=== PATIENT | male | born 1955 | race Caucasian/White ===

== ENCOUNTER 2023-04-24 14:29 | Outpatient (AMB) | payer MEDICARE, MEDICAID, SELFPAY ==
--- NOTE | 2023-04-24 14:35 | A.OFFVIS_ITS ---
Intake Intake Visit Reasons: urinary frequency Intake Note: New Patient presents for initial visit for urinary frequency Urology Medications: terazosin Blood Thinner: aspirin PVR: 45ml's Delimber Operator Required: No Accompanied by: Self / Same As Patient Allergies benzonatate [From Alisha Pepe] Allergy (Verified 04/24/23 20:24) Rash augmenton Allergy (Unknown, Uncoded 04/24/23 20:24) Rash Medication List - Last Reconciled 04/24/23 by RADHA Stein acetaminophen 1,000 mg PO Q8H PRN aspirin (Gertrude Low Dose Aspirin) 81 mg PO DAILY atorvastatin 40 mg PO DAILY metoprolol succinate ER 100 mg PO DAILY terazosin 2 mg PO BEDTIME HPI HPI Comments History of Present Illness Details Casey is a 67-year-old male patient of [facility]. He has a past medical history of AFib, diastolic dysfunction, ED, and BPH. He presents to the office today as a new patient for nocturia. He reports previously following up with Dr. Peres in the past for his history of erectile dysfunction as well as ongoing lower urinary tract symptoms he has experienced over time. He reports noting ongoing worsening nocturia. He reports bothersome urinary issues are at night however feels throughout the day he does relatively well with emptying his bladder. In review of patient's chart it appears most recent PSA 03/06--5.2. He denies any signs and symptoms of sleep apnea. When asked he denies urgency, urinary frequency, incontinence, hematuria, dysuria, foul smelling urine, changes to urinary stream, flank pain, fever, and or chills. He reports to have recently started 2 mg of terazosin at bedtime by his PCP however it has only been 1 week in doing so. In office urinalysis results reviewed with the patient today. PVR 45ml's. Discussed at length potential causes for lower urinary tract symptoms he is experiencing. Discussed lifestyle modifications to assist with nocturia. Discussed further workup with redraw of PSA with no sex the night before, no caffeine morning of, and no heavy lifting 1-2 days prior to lab draw. Discussed obtaining retroperitoneal ultrasound for further assessment evaluation. JACKSON offered however deferred. He otherwise offers no issues or concerns at this time. FORMERLY [facility], [facility]–1983 Medical History (Updated 04/24/23 @ 15:12 by RADHA Stein) Encounter for screening Atrial fibrillation Diastolic dysfunction Erectile dysfunction BPH (benign prostatic hyperplasia) Surgical History History of mitral valve repair Review of Systems Const Reports as per HPI Eyes Reports no additional complaints ENT Reports no additional complaints Card Reports as per HPI Resp Reports no additional complaints GI Reports no additional complaints Reports as per HPI Musc Reports no additional complaints Neuro Reports no additional complaints Psych Reports no additional complaints Endo Reports no additional complaints Jimmie/Lymph Reports no additional complaints Aller/Immun Reports no additional complaints Physical Exam Const General: cooperative, healthy appearing, comfortable, no acute distress, well developed, alert and awake Orientation/consciousness: patient oriented x3 HEENT Head: Yes normal to inspection, Yes normocephalic and Yes atraumatic Ears: hearing grossly normal bilaterally Eyes General: appearance normal, both eyes and all related structures Neck Neck: Yes normal visual inspection and Yes trachea midline Chest Chest palpation & inspection: normal inspection of the chest Resp Effort & Inspection: normal respiratory effort and able to speak in complete sentences Cardio Rate: regular rate GI Inspection: Yes normal to inspection General: Yes no CVA tenderness Back/Spine/Pelvis Back: no CVA tenderness Skin General skin exam: no rashes or lesions noted Neuro General: patient oriented x3 Extrem General: Yes normal to inspection Psych Appearance: grossly normal and well kempt Mental Status: mental status grossly normal Speech and movement: Normal speech and movement present and Clear speech present Affect: normal affect Attitude: cooperative Thought process: Normal thought process present Thought content: Normal thought content present Insight: Fair insight present (Psych) Judgement: Fair judgement present (Psych) Office Procedures Post Void Residual Post Residual Void Post Void Residual (PVR): 45 [id number] Void Residual by ultrasound Results AMB Urinalysis, Automated UA Leukoctes 0 Ember/uL Last Edit by Cytherisyessica Ortiz on 04/24/23 14:55 UA Nitrite Negative Last Edit by Mark Ortiz on 04/24/23 14:55 UA Urobilinogen 0.2 mg/dL Last Edit by Mark Ortiz on 04/24/23 14:55 UA Protein 0 mg/dL Last Edit by Mark Ortiz on 04/24/23 14:55 UA pH 7.0 Last Edit by Mark Ortiz on 04/24/23 14:55 UA Blood 0 Vinnie/uL Last Edit by Mark Parisliang on 04/24/23 14:55 UA Specific [place] 1.005 Last Edit by Mark Ortiz on 04/24/23 14:55 UA Ketone Negative Last Edit by Mark Ortiz on 04/24/23 14:55 UA Bilirubin 0 mg/dL Last Edit by Mark Ortiz on 04/24/23 14:55 UA Glucose 0 mg/dL Last Edit by Mark Ortiz on 04/24/23 14:55 Results Reviewed Results Reviewed: Laboratory Last Values Urine pH (Auto) 7.0 04/24/23 14:51 Specific [place] (Auto) 1.005 04/24/23 14:51 Urine Protein (Auto) 0 mg/dL 04/24/23 14:51 Glucose (UA)(Auto) 0 mg/dL 04/24/23 14:51 Urine Ketones (Auto) Negative 04/24/23 14:51 Urine Blood (Auto) 0 Vinnie/uL 04/24/23 14:51 Urine Nitrite (Auto) Negative 04/24/23 14:51 Urine Bilirubin (Auto) 0 mg/dL 04/24/23 14:51 Urine Urobilinogen (Auto) 0.2 mg/dL 04/24/23 14:51 Leukocyte Esterase (Auto) 0 Ember/uL 04/24/23 14:51 Assessment & Plan Assessment & Plan (1) Elevated PSA: Code(s): R97.20 - Elevated prostate specific antigen [PSA] (2) Nocturia: Code(s): R35.1 - Nocturia Plan In office urinalysis results reviewed with the patient today; as noted above. PVR 45 mL. Will obtain PSA as discussed. Continue to mg of terazosin at bedtime as prescribed by PCP Will obtain retroperitoneal ultrasound for further assessment evaluation. Discussed possible near future in office cystoscopy for further assessment evaluation. Discussed at length lifestyle modifications to assist with nocturia. Discussed at length potential causes for lower urinary tract symptoms patient has been experiencing. Follow-up in 6 weeks with imaging and lab to be completed prior; or sooner with any issues, concerns, and or questions. Orders: Orders US retroperitoneal comp Today R35.1 - Nocturia AMB Urinalysis Automated Today Z13.9 - Encounter for screening, unspecified AMB Post Void Residual by ultrasound Today Z13.9 - Encounter for screening, unspecified PSA,Total (Free>4and<10) Today R97.20 - Elevated prostate specific antigen [PSA] Patient Instructions: The patient had an opportunity to ask questions regarding the treatment plan. All questions were answered. Physical exam, labs, and imaging were discussed and reviewed in detail. As well as risks, benefits, and discussion of treatment choices. No major barriers to understanding were identified. The patient ex pressed understanding and agreement with the above treatment plan. The patient was made aware they should contact our office by phone for worsening of their current condition, the appearance of new symptoms, or with any questions or concerns. Compliance is encouraged with any medications and follow up testing that is ordered. It is a privilege to be allowed the opportunity to participate in? your urological care.? Again, if you have any questions or concerns If you have any questions or concerns please do not hesitate to contact me. The office is [phone]. This note is constructed using voice recognition software. While every effort has been made to ensure accuracy agricultural mechanic errors may have been included. Yours sincerely, RADHA Stein Coding Level of Care Code New Pt Level 3 (79831) Diagnoses Elevated PSA R97.20 Nocturia R35.1 CPT Codes Post Residual Void - PVR CPT Code: 56714-Riwf Void Residual by ultrasound ([id number])
== END 2023-04-24 15:23 | disposition home or self-care (01) ==
PROVIDERS: PCP Nurse Practitioner; Visit Provider Nurse Practitioner Family
DX: R97.20 Elevated prostate specific antigen [PSA] (principal); R35.1 Nocturia; Z13.9 Encounter for screening, unspecified
CPT/HCPCS: 99203

== ENCOUNTER → 2023-04-24 14:29 | Outpatient (BNVA) | payer MEDICARE, MEDICAID, SELFPAY | PROVIDERS: PCP Nurse Practitioner; Visit Provider Nurse Practitioner Family | DX: R97.20 Elevated prostate specific antigen [PSA] (principal); R35.1 Nocturia | CPT/HCPCS: 51798; 81003; 99202 ==

== ENCOUNTER 2023-05-09 14:05 | Outpatient (REF) | payer MEDICARE, MEDICAID, SELFPAY ==
--- NOTE | ~2023-05-09 | US_ITS ---
EXAMINATION: US RETROPERITONEAL COMPLETE (RENAL) CLINICAL INFORMATION: Nocturia. COMPARISON: None available. TECHNIQUE: Real-time imaging of the kidneys and bladder. FINDINGS: RIGHT KIDNEY: 10.3 x 5.0 x 6.4 cm (SAG x AP x TRV). Renal cortical thickness is normal. Limited visualization. Exophytic 0.4 cm upper pole cyst is difficult to characterize due to small size. Prominent renal pyramids. No renal calculi. LEFT KIDNEY: 11.0 x 5.3 x 5.2 cm (SAG x AP x TRV). No hydronephrosis. No renal calculi. Renal cortical thickness is normal. Limited visualization. BLADDER: Bladder wall thickening of 0.6 cm. Diffuse trabeculations of the bladder wall. Bladder is well distended. Left ureteral jet is demonstrated; right is not. Prevoid bladder volume is 271.4 mL. Postvoid bladder volume is 103.6 mL. ADDITIONAL FINDINGS: Prostate volume 33.4 mL. US/US retroperitoneal comp IMPRESSION: 1. Bladder wall thickening with trabeculations of the bladder wall. Postvoid residual of 103.6 mL. 2. Prostate volume 33.4 mL. 3. Prominent right renal pyramids. No renal calculi. 4. Limited visualization due to bowel gas and body habitus. CT scan could be considered for better visualization.
== END 2023-05-09 14:06 | disposition home or self-care (01) ==
LOC: HO.US 14:05
PROVIDERS: PCP Nurse Practitioner; Visit Provider Nurse Practitioner Family
DX: R35.1 Nocturia (principal)
CPT/HCPCS: 76770

== ENCOUNTER 2023-06-04 14:57 | Outpatient (REF) | payer MEDICARE, MEDICAID, SELFPAY ==
[2023-06-04 16:33] LABS: PSA,Total (Free>4and<10) 4.52 ng/mL (0.00-4.00)
[2023-06-06 11:09] LABS: Free Prostate Spec Ag 0.9 ng/mL; Percent Free Prostate Spec Ag 19 % (calc) (>25); Prostate Specific Ag Total 4.7 ng/mL (< OR = 4.0)
== END 2023-06-04 14:58 | disposition home or self-care (01) ==
LOC: HO.LAB 14:57
PROVIDERS: Visit Provider Nurse Practitioner Family
DX: R97.20 Elevated prostate specific antigen [PSA] (principal); Z12.5 Encounter for screening for malignant neoplasm of prostate
CPT/HCPCS: 36415; 84153; 84154

== ENCOUNTER 2023-06-10 11:02 | Outpatient (AMB) | payer MEDICARE, MEDICAID, SELFPAY ==
--- NOTE | 2023-06-10 11:20 | MHC.OFFVIS ---
Intake Intake Visit Reasons: 6w/US/PSA(set) Intake Note: Patient presents today for follow up visit for elevated psa,nocturia, lab and ultrasound results Imagin05/09/23 PSA Total: 4.5 Urology Medications: terazosin Blood Thinner: aspirin PVR:52ml Honing Machine Operator Tool Required: No Accompanied by: Self / Same As Patient Allergies benzonatate [From Tessalon Perles] Allergy (Verified 06/10/23 11:39) Rash augmenton Allergy (Unknown, Uncoded 06/10/23 11:39) Rash HPI HPI Comments History of Present Illness Details Casey is a 67-year-old male patient of [facility]. He has a past medical history of AFib, diastolic dysfunction, ED, and BPH. He presents to the office today for follow-up. Of note, patient was seen approximately 6 weeks ago as a new patient for nocturia at which time a retroperitoneal ultrasound and PSA were ordered for further assessment evaluation. These results were reviewed with the patient today. Right kidney with no calculi. Exophytic 0.4 cm upper pole cyst is difficult to characterize due to small size. Prominent renal pyramids. Left kidney with no hydronephrosis and or renal calculi. The bladder wall is thickened measuring 0.6 cm. Diffuse trabeculations of the bladder wall. The bladder is well distended. Pre void bladder volume is approximately 270 mL. Postvoid bladder volume is approximately 100 mL. Prostate volume is approximately 33 mL. PSAs are as follows: 06/07 4.5, 06/07 4.7 free PSA 19%. In discussion with the patient today he does report noting improvement in nocturia with 2 mg of terazosin that was started by his PCP. Discussed at length potential causes of elevated PSA. Discussed findings on most recent retroperitoneal ultrasound. Discussed further workup/interventions for elevated PSA with surveillance monitoring verses trial of finasteride verses prostate biopsy versus prostate MRI. Reviewed PCPT risk calculator 74% chance that prostate biopsy is negative for cancer, 19% chance of low-grade prostate cancer, and 7% chance of high-grade prostate cancer. When asked he denies urgency, urinary frequency, incontinence, hematuria, dysuria, foul smelling urine, changes to urinary stream, flank pain, fever, and or chills. In office urinalysis results reviewed with the patient today. PVR 52 mLs. PFSH Medical History Encounter for screening Atrial fibrillation Diastolic dysfunction Erectile dysfunction BPH (benign prostatic hyperplasia) Surgical History History of mitral valve repair Review of Systems Const Reports as per HPI Eyes Reports no additional complaints ENT Reports no additional complaints Card Reports as per HPI Resp Reports no additional complaints GI Reports no additional complaints Reports as per HPI Musc Reports no additional complaints Neuro Reports no additional complaints Psych Reports no additional complaints Endo Reports no additional complaints Jimmie/Lymph Reports no additional complaints Aller/Immun Reports no additional complaints Physical Exam Const General: cooperative, healthy appearing, comfortable, no acute distress, well developed, alert and awake Orientation/consciousness: patient oriented x3 HEENT Head: Yes normal to inspection, Yes normocephalic and Yes atraumatic Ears: hearing grossly normal bilaterally Eyes General: appearance normal, both eyes and all related structures Neck Neck: Yes normal visual inspection and Yes trachea midline Chest Chest palpation & inspection: normal inspection of the chest Resp Effort & Inspection: normal respiratory effort and able to speak in complete sentences Cardio Rate: regular rate GI Inspection: Yes normal to inspection General: Yes no CVA tenderness Back/Spine/Pelvis Back: no CVA tenderness Skin General skin exam: no rashes or lesions noted Neuro General: patient oriented x3 Extrem General: Yes normal to inspection Psych Appearance: grossly normal and well kempt Mental Status: mental status grossly normal Speech and movement: Normal speech and movement present and Clear speech present Affect: normal affect Attitude: cooperative Thought process: Normal thought process present Thought content: Normal thought content present Insight: Fair insight present (Psych) Judgement: Fair judgement present (Psych) Office Procedures Post Void Residual Post Residual Void Post Void Residual (PVR): 52 [id number] Void Residual by ultrasound Results AMB Urinalysis, Automated UA Leukoctes 0 Ember/uL Last Edit by Paulina Lei CMA on 06/10/23 11:40 UA Nitrite Negative Last Edit by Paulina Lei CMA on 06/10/23 11:40 UA Urobilinogen 0.2 mg/dL Last Edit by Paulina Lei CMA on 06/10/23 11:40 UA Protein 0 mg/dL Last Edit by Paulina Lei CMA on 06/10/23 11:40 UA pH 6.0 Last Edit by [facility], [facility] [address] on 06/10/23 11:40 UA Blood 0 Vinnie/uL Last Edit by [facility], [facility] [address] on 06/10/23 11:40 UA Specific [place] 1.015 Last Edit by [facility], [facility] [address] on 06/10/23 11:40 UA Ketone Negative Last Edit by [facility], [facility] on 06/10/23 11:40 UA Bilirubin 0 mg/dL Last Edit by [facility], [facility] on 06/10/23 11:40 UA Glucose 0 mg/dL Last Edit by [facility], [facility] on 06/10/23 11:40 Results Reviewed Results Reviewed: Laboratory Last Values Urine pH (Auto) 6.0 06/10/23 11:25 Specific [place] (Auto) 1.015 06/10/23 11:25 Urine Protein (Auto) 0 mg/dL 06/10/23 11:25 Glucose (UA)(Auto) 0 mg/dL 06/10/23 11:25 Urine Ketones (Auto) Negative 06/10/23 11:25 Urine Blood (Auto) 0 Vinnie/uL 06/10/23 11:25 Urine Nitrite (Auto) Negative 06/10/23 11:25 Urine Bilirubin (Auto) 0 mg/dL 06/10/23 11:25 Urine Urobilinogen (Auto) 0.2 mg/dL 06/10/23 11:25 Leukocyte Esterase (Auto) 0 Ember/uL 06/10/23 11:25 Date of Service: 05/09/23 Procedure(s): US retroperitoneal comp FINDINGS: RIGHT KIDNEY: 10.3 x 5.0 x 6.4 cm (SAG x AP x TRV). Renal cortical thickness is normal. Limited visualization. Exophytic 0.4 cm upper pole cyst is difficult to characterize due to small size. Prominent renal pyramids. No renal calculi. LEFT KIDNEY: 11.0 x 5.3 x 5.2 cm (SAG x AP x TRV). No hydronephrosis. No renal calculi. Renal cortical thickness is normal. Limited visualization. BLADDER: Bladder wall thickening of 0.6 cm. Diffuse trabeculations of the bladder wall. Bladder is well distended. Left ureteral jet is demonstrated; right is not. Prevoid bladder volume is 271.4 mL. Postvoid bladder volume is 103.6 mL. ADDITIONAL FINDINGS: Prostate volume 33.4 mL. IMPRESSION: 1. Bladder wall thickening with trabeculations of the bladder wall. Postvoid residual of 103.6 mL. 2. Prostate volume 33.4 mL. 3. Prominent right renal pyramids. No renal calculi. 4. Limited visualization due to bowel gas and body habitus. CT scan could be considered for better visualization. Assessment & Plan Assessment & Plan (1) Elevated PSA: Code(s): R97.20 - Elevated prostate specific antigen [PSA] (2) Nocturia: Code(s): R35.1 - Nocturia (3) Renal cyst: Code(s): N28.1 - Cyst of kidney, acquired (4) Bladder wall thickening: Code(s): N32.89 - Other specified disorders of bladder (5) Bladder trabeculation: Code(s): N32.89 - Other specified disorders of bladder Plan In office urinalysis results reviewed with the patient today; as noted above. PVR 52 mL. Will increase terazosin to 2 capsules per day as discussed and prescribed; new prescription provided. Start finasteride as discussed and prescribed. Recent retroperitoneal ultrasound results reviewed with the patient today; as noted above. Recent PSA results reviewed with the patient today; as noted above. Discussed at length potential causes of elevated PSA Discussed further treatment option with prostate biopsy verses trial finasteride verses prostate MRI; these interventions were discussed at length; risks and benefits of these treatment options were discussed. Will obtain PSA in 4 months. Follow-up in 4 months with lab to be completed prior; or sooner with any issues, concerns, and or questions. Orders: Orders AMB Urinalysis Automated Today R33.9 - Retention of urine, unspecified AMB Post Void Residual by ultrasound Today R33.9 - Retention of urine, unspecified PSA,Total (Free>4and<10) 4 Months R35.1 - Nocturia, R97.20 - Elevated prostate specific antigen [PSA] Medications: New finasteride 5 mg PO DAILY 90 days 90 tabs 1RF N13.8 - Other obstructive and reflux uropathy, N40.1 - Benign prostatic hyperplasia with lower urinary tract symptoms, R33.9 - Retention of urine, unspecified Changed From terazosin 2 mg PO BEDTIME To terazosin 4 mg (2 x 2 mg) PO BEDTIME 90 days 180 caps 3RF Patient Instructions: The patient had an opportunity to ask questions regarding the treatment plan. All questions were answered. Physical exam, labs, and imaging were discussed and reviewed in detail. As well as risks, benefits, and discussion of treatment choices. No major barriers to understanding were identified. The patient expressed understanding and agreement with the above treatment plan. The patient was made aware they should contact our office by phone for worsening of their current condition, the appearance of new symptoms, or with any questions or concerns. Compliance is encouraged with any medications and follow up testing that is ordered. It is a privilege to be allowed the opportunity to participate in? your urological care.? Again, if you have any questions or concerns If you have any questions or concerns please do not hesitate to contact me. The office is [phone]. This note is constructed using voice recognition software. While every effort has been made to ensure accuracy hand cell tuber errors may have been included. Yours sincerely, RADHA Stein Coding Level of Care Code Est Pt Level 4 (54685) Diagnoses Elevated PSA R97.20 Nocturia R35.1 Renal cyst N28.1 Bladder wall thickening N32.89 Bladder trabeculation N32.89 CPT Codes Post Residual Void - PVR CPT Code: 45235-Mfyb Void Residual by ultrasound ([id number])
== END 2023-06-10 11:56 | disposition home or self-care (01) ==
PROVIDERS: PCP Nurse Practitioner; Visit Provider Nurse Practitioner Family
DX: R97.20 Elevated prostate specific antigen [PSA] (principal); R35.1 Nocturia; N28.1 Cyst of kidney, acquired; N32.89 Other specified disorders of bladder
CPT/HCPCS: 99214

== ENCOUNTER → 2023-06-10 11:02 | Outpatient (BNVA) | payer MEDICARE, MEDICAID, SELFPAY | PROVIDERS: PCP Nurse Practitioner; Visit Provider Nurse Practitioner Family | DX: R97.20 Elevated prostate specific antigen [PSA] (principal); R35.1 Nocturia; N28.1 Cyst of kidney, acquired; N32.89 Other specified disorders of bladder | CPT/HCPCS: 51798; 81003; 99212 ==

== ENCOUNTER 2023-10-06 08:28 | Outpatient (REF) | payer MEDICARE, MEDICAID, SELFPAY ==
[2023-10-06 10:10] LABS: PSA,Total (Free>4and<10) 2.43 ng/mL (0.00-4.00)
== END 2023-10-06 08:29 | disposition home or self-care (01) ==
LOC: HO.LAB 08:28
PROVIDERS: PCP Nurse Practitioner; Visit Provider Nurse Practitioner Family
DX: R97.20 Elevated prostate specific antigen [PSA] (principal); R35.1 Nocturia; Z12.5 Encounter for screening for malignant neoplasm of prostate
CPT/HCPCS: 36415; 84153

== ENCOUNTER 2023-10-08 10:46 | Outpatient (AMB) | payer MEDICARE, MEDICAID, SELFPAY ==
--- NOTE | 2023-10-08 10:51 | A.OFFVIS_ITS ---
Intake Visit Reasons: 4m/PSA/PVR Intake Note: Patient presents today for follow up visit for elevated psa, nocturia,and lab PSA Total: 2.43 Urology Medications: terazosin and finasteride Blood Thinner: aspirin PVR: 40ml's Computer Support Specialist Instructor Required: No Accompanied by: Self / Same As Patient Allergies benzonatate [From Alisha Pepe] Allergy (Verified 10/08/23 11:20) Rash augmenton Allergy (Unknown, Uncoded 10/08/23 11:20) Rash Medication List - Last Reconciled 10/08/23 by KENNY SteinP- aspirin (Gertrude Low Dose Aspirin) 81 mg PO DAILY atorvastatin 40 mg PO DAILY finasteride 5 mg PO DAILY 90 days metoprolol succinate ER 100 mg PO DAILY terazosin 4 mg (2 x 2 mg) PO BEDTIME 90 days HPI Comments Details: Casey is a pleasant 68-year-old male patient of [facility]. He has a past medical history of AFib, diastolic dysfunction, ED, and BPH. He presents to the office today for follow-up of his ongoing lower urinary tract symptoms, elevated PSA, an enlarged prostate. In discussion with the patient today reports to be doing and feeling well. He reports noting improvement in episodes of nocturia he had been experiencing. He reports he had been getting up approximately 5 times per night however this has decreased to approximately 3 times per night. He reports compliance with finasteride and terazosin as prescribed. Recent PSA results reviewed with the patient today. Discussed significant decrease as noted and trended below. Previous workup has included a retroperitoneal ultrasound noting right kidney with no calculi. Exophytic 0.4 cm upper pole cyst is difficult to characterize due to small size. Prominent renal pyramids. Left kidney with no hydronephrosis and or renal calculi. The bladder wall is thickened measuring 0.6 cm. Diffuse trabeculations of the bladder wall. The bladder is well distended. Pre void bladder volume is approximately 270 mL. Postvoid bladder volume is approximately 100 mL. Prostate volume is approximately 33 mL. PSAs are as follows: PSAs: 06/07 4.5, 06/07 4.7 free PSA 19%, 10/05 2.4 When asked he denies urgency, urinary frequency, incontinence, hematuria, dysuria, foul smelling urine, changes to urinary stream, flank pain, fever, and or chills. In office urinalysis results reviewed with the patient today. PVR 40mLs. [facility] Medical History Encounter for screening Atrial fibrillation Diastolic dysfunction Erectile dysfunction BPH (benign prostatic hyperplasia) Surgical History History of mitral valve repair Review of Systems Const Reports as per HPI Eyes Reports no additional complaints ENT Reports no additional complaints Card Reports as per HPI Resp Reports no additional complaints GI Reports no additional complaints Reports as per HPI Musc Reports no additional complaints Neuro Reports no additional complaints Psych Reports no additional complaints Endo Reports no additional complaints Jimmie/Lymph Reports no additional complaints Aller/Immun Reports no additional complaints Physical Exam Const General: cooperative, healthy appearing, comfortable, no acute distress, well developed, alert and awake Orientation/consciousness: patient oriented x3 Limitations: no limitations HEENT Head: Yes normal to inspection, Yes normocephalic and Yes atraumatic Ears: hearing grossly normal bilaterally Eyes General: appearance normal, both eyes and all related structures Neck Neck: Yes normal visual inspection and Yes trachea midline Chest Chest palpation & inspection: normal inspection of the chest Resp Effort & Inspection: normal respiratory effort and able to speak in complete sentences Cardio Rate: regular rate GI Inspection: Yes normal to inspection General: Yes no CVA tenderness Back/Spine/Pelvis Back: no CVA tenderness Skin General skin exam: no rashes or lesions noted Neuro General: patient oriented x3 Extrem General: Yes normal to inspection Psych Appearance: grossly normal and well kempt Mental Status: mental status grossly normal Speech and movement: Normal speech and movement present and Clear speech present Affect: normal affect Attitude: cooperative Thought process: Normal thought process present Thought content: Normal thought content present Insight: Fair insight present (Psych) Judgement: Fair judgement present (Psych) Office Procedures Post Void Residual Post Residual Void Post Void Residual (PVR): 40 [id number] Void Residual by ultrasound Results AMB Urinalysis, Automated UA Leukoctes 0 Ember/uL Last Edit by Mark Ortiz on 10/08/23 11:09 UA Nitrite Negative Last Edit by Mark Ortiz on 10/08/23 11:09 UA Urobilinogen 0.2 mg/dL Last Edit by Mark Ortiz on 10/08/23 11:09 UA Protein 15 mg/dL Last Edit by Mark Ortiz on 10/08/23 11:09 UA pH 6.0 Last Edit by Mark Ortiz on 10/08/23 11:09 UA Blood 0 Vinnie/uL Last Edit by Mark Ortiz on 10/08/23 11:09 UA Specific [place] 1.015 Last Edit by Mark Ortiz on 10/08/23 11:09 UA Ketone Negative Last Edit by Mark Ortiz on 10/08/23 11:09 UA Bilirubin 0 mg/dL Last Edit by Mark Ortiz on 10/08/23 11:09 UA Glucose 0 mg/dL Last Edit by Mark Ortiz on 10/08/23 11:09 Results Reviewed Results Reviewed: Laboratory Last Values Urine pH (Auto) 6.0 10/08/23 10:57 Specific [place] (Auto) 1.015 10/08/23 10:57 Urine Protein (Auto) 15 mg/dL 10/08/23 10:57 Glucose (UA)(Auto) 0 mg/dL 10/08/23 10:57 Urine Ketones (Auto) Negative 10/08/23 10:57 Urine Blood (Auto) 0 Vinnie/uL 10/08/23 10:57 Urine Nitrite (Auto) Negative 10/08/23 10:57 Urine Bilirubin (Auto) 0 mg/dL 10/08/23 10:57 Urine Urobilinogen (Auto) 0.2 mg/dL 10/08/23 10:57 Leukocyte Esterase (Auto) 0 Ember/uL 10/08/23 10:57 Assessment & Plan Assessment & Plan (1) Elevated PSA: Code(s): R97.20 - Elevated prostate specific antigen [PSA] Category: Medical (2) Nocturia: Code(s): R35.1 - Nocturia Category: Medical (3) Renal cyst: Code(s): N28.1 - Cyst of kidney, acquired Category: Medical (4) Bladder wall thickening: Code(s): N32.89 - Other specified disorders of bladder Category: Medical (5) Bladder trabeculation: Code(s): N32.89 - Other specified disorders of bladder Category: Medical Plan In office urinalysis results reviewed with the patient today; as noted above. PVR 40 mL. Continue terazosin finasteride as discussed and prescribed. Recent PSA results reviewed with the patient today; as noted above. Discussed possible near future in office cystoscopy if symptoms persist and/or worsen. Discussed importance of limiting fluids 2-3 hours prior to bed to decrease episodes of nocturia. Will obtain PSA in 4-6 months. Follow-up in 4-6 months with lab to be completed prior; or sooner with any issues, concerns, and or questions. Orders: Orders AMB Post Void Residual by ultrasound Today R35.1 - Nocturia Prostate Specific Antigen 4 Months R97.20 - Elevated prostate specific antigen [PSA] AMB Urinalysis Automated Today Z13.9 - Encounter for screening, unspecified Patient Instructions: The patient had an opportunity to ask questions regarding the treatment plan. All questions were answered. Physical exam, labs, and imaging were discussed and reviewed in detail. As well as risks, benefits, and discussion of treatment choices. No major barriers to understanding were identified. The patient expressed understanding and agreement with the above treatment plan. The patient was made aware they should contact our office by phone for worsening of their current condition, the appearance of new symptoms, or with any questions or concerns. Compliance is encouraged with any medications and follow up testing that is ordered. It is a privilege to be allowed the opportunity to participate in? your urological care.? Again, if you have any questions or concerns If you have any questions or concerns please do not hesitate to contact me. The office is [phone]. This note is constructed using voice recognition software. While every effort has been made to ensure accuracy chamber worker errors may have been included. Yours sincerely, RADHA Stein Coding Level of Care Code Est Pt Level 3 (33627) Diagnoses Elevated PSA R97.20 Nocturia R35.1 Renal cyst N28.1 Bladder wall thickening N32.89 Bladder trabeculation N32.89 CPT Codes Post Residual Void - PVR CPT Code: 24816-Kccb Void Residual by ultrasound ([id number])
== END 2023-10-08 11:25 | disposition home or self-care (01) ==
PROVIDERS: PCP Nurse Practitioner; Visit Provider Nurse Practitioner Family
DX: R97.20 Elevated prostate specific antigen [PSA] (principal); R35.1 Nocturia; N28.1 Cyst of kidney, acquired; N32.89 Other specified disorders of bladder; Z13.9 Encounter for screening, unspecified
CPT/HCPCS: 99213

== ENCOUNTER → 2023-10-08 10:46 | Outpatient (BNVA) | payer MEDICARE, MEDICAID, SELFPAY | PROVIDERS: PCP Nurse Practitioner; Visit Provider Nurse Practitioner Family | DX: R35.1 Nocturia (principal); N28.1 Cyst of kidney, acquired; R97.20 Elevated prostate specific antigen [PSA]; N32.89 Other specified disorders of bladder; Z79.899 Other long term (current) drug therapy | CPT/HCPCS: 51798; 81003; 99212 ==

== ENCOUNTER 2023-10-27 11:57 | Outpatient (REF) | payer MEDICARE, MEDICAID, SELFPAY ==
[2023-10-27 13:22] LABS: Appearance Urine Clear; Color Urine Yellow; Glucose Urine UA Negative (Negative); Leukocyte Esterase Urine Negative (Negative); Nitrite Urine Negative (Negative); Urine Blood Negative (Negative); Urine Ketones Negative (Negative); Urine Protein Negative (Neg-Trace)
[2023-10-27 13:31] LABS: Bacteria Urine None Seen (None Seen); Hyaline Casts Urine 0-2 /LPF (0-2); RBC Urine 0-2 /HPF (0-2); Squamous Epithelial Cell Urine 0-2 /HPF (0-2); WBC Urine 0-5 /HPF (0-5)
== END 2023-10-27 11:58 | disposition home or self-care (01) ==
LOC: HO.LAB 11:57
PROVIDERS: Visit Provider Nurse Practitioner Family
DX: R35.1 Nocturia (principal)
CPT/HCPCS: 81001; 87086

== ENCOUNTER 2023-12-23 10:44 | Outpatient (REF) | payer MEDICARE, MEDICAID, SELFPAY ==
[2023-12-23 12:35] LABS: Appearance Urine Clear; Color Urine Yellow; Glucose Urine UA Negative (Negative); Leukocyte Esterase Urine Negative (Negative); Nitrite Urine Negative (Negative); PH 6.5 (5.0-9.0); Urine Blood Negative (Negative); Urine Ketones Negative (Negative); Urine Protein Negative (Neg-Trace)
[2023-12-23 12:39] LABS: Bacteria Urine None Seen (None Seen); Hyaline Casts Urine 0-2 /LPF (0-2); RBC Urine 0-2 /HPF (0-2); Squamous Epithelial Cell Urine 0-2 /HPF (0-2); WBC Urine 0-5 /HPF (0-5)
== END 2023-12-23 10:45 | disposition home or self-care (01) ==
LOC: HO.LAB 10:44
PROVIDERS: PCP Nurse Practitioner; Visit Provider Nurse Practitioner Family
DX: R35.1 Nocturia (principal); N32.89 Other specified disorders of bladder
CPT/HCPCS: 81001; 87086

== ENCOUNTER 2024-02-17 09:17 | Outpatient (REF) | payer MEDICARE, MEDICAID, SELFPAY ==
[2024-02-17 11:56] LABS: Prostate Specific Antigen 1.63 ng/mL (<0.05-4.0)
== END 2024-02-17 09:18 | disposition home or self-care (01) ==
LOC: HO.LAB 09:17
PROVIDERS: PCP Nurse Practitioner; Visit Provider Nurse Practitioner Family
DX: R97.20 Elevated prostate specific antigen [PSA] (principal); Z12.5 Encounter for screening for malignant neoplasm of prostate
CPT/HCPCS: 36415; 84153

== ENCOUNTER 2024-03-03 15:03 | Outpatient (AMB) | payer MEDICARE, MEDICAID, SELFPAY ==
--- NOTE | 2024-03-03 15:07 | A.OFFVIS_ITS ---
Intake Visit Reasons: 4m/PSA(set) Intake Note: Patient presents today for follow up visit for elevated psa, nocturia,and lab PSA Total: 1.63 Urology Medications: terazosin and finasteride Blood Thinner: aspirin PVR: 30ml's Network Associate Required: No Accompanied by: Self / Same As Patient Allergies benzonatate [From Tessalteresa My] Allergy (Verified 03/03/24 15:45) Rash augmenton Allergy (Unknown, Uncoded 03/03/24 15:45) Rash Medication List - Last Reconciled 03/03/24 by VISHAL Stein- aspirin (Gertrude Low Dose Aspirin) 81 mg PO DAILY atorvastatin 40 mg PO DAILY diltiazem HCl 120 mg PO DAILY finasteride 5 mg PO DAILY 90 days metoprolol succinate ER 100 mg PO DAILY terazosin 4 mg (2 x 2 mg) PO BEDTIME 90 days HPI Comments Details: Casey is a pleasant 68-year-old male patient of [facility]. He has a past medical history of AFib, diastolic dysfunction, ED, and BPH. He presents to the office today for follow-up of his ongoing lower urinary tract symptoms, elevated PSA, an enlarged prostate. In discussion with the patient today reports to be doing and feeling well. He reports noting improvement in episodes of nocturia he had been experiencing. He reports compliance with finasteride and terazosin as prescribed. Recent PSA results reviewed with the patient today as noted and trended below. Previous workup has included a retroperitoneal ultrasound noting right kidney with no calculi. Exophytic 0.4 cm upper pole cyst is difficult to characterize due to small size. Prominent renal pyramids. Left kidney with no hydronephrosis and or renal calculi. The bladder wall is thickened measuring 0.6 cm. Diffuse trabeculations of the bladder wall. The bladder is well distended. Pre void bladder volume is approximately 270 mL. Postvoid bladder volume is approximately 100 mL. Prostate volume is approximately 33 mL. PSAs are as follows: PSAs: 2/24 4.5, 06/07 4.7 free PSA 19%, 10/05 2.4, 03/07 1.6 When asked he denies urgency, urinary frequency, incontinence, hematuria, dysuria, foul smelling urine, changes to urinary stream, flank pain, fever, and or chills. In office urinalysis results reviewed with the patient today. PVR 30mLs. He otherwise offers no other issues or concerns at this time. [facility] Medical History Encounter for screening Atrial fibrillation Diastolic dysfunction Erectile dysfunction BPH (benign prostatic hyperplasia) Surgical History History of mitral valve repair Review of Systems Const Reports as per HPI Eyes Reports no additional complaints ENT Reports no additional complaints Card Reports as per HPI Resp Reports no additional complaints GI Reports no additional complaints Reports as per HPI Musc Reports no additional complaints Neuro Reports no additional complaints Psych Reports no additional complaints Endo Reports no additional complaints Jimmie/Lymph Reports no additional complaints Aller/Immun Reports no additional complaints Physical Exam Const General: cooperative, healthy appearing, comfortable, no acute distress, well developed, alert and awake Orientation/consciousness: patient oriented x3 Limitations: no limitations HEENT Head: Yes normal to inspection, Yes normocephalic and Yes atraumatic Ears: hearing grossly normal bilaterally Eyes General: appearance normal, both eyes and all related structures Neck Neck: Yes normal visual inspection and Yes trachea midline Chest Chest palpation & inspection: normal inspection of the chest Resp Effort & Inspection: normal respiratory effort and able to speak in complete sentences Cardio Rate: regular rate GI Inspection: Yes normal to inspection General: Yes no CVA tenderness Back/Spine/Pelvis Back: no CVA tenderness Skin General skin exam: no rashes or lesions noted Neuro General: patient oriented x3 Extrem General: Yes normal to inspection Psych Appearance: grossly normal and well kempt Mental Status: mental status grossly normal Speech and movement: Normal speech and movement present and Clear speech present Affect: normal affect Attitude: cooperative Thought process: Normal thought process present Thought content: Normal thought content present Insight: Fair insight present (Psych) Judgement: Fair judgement present (Psych) Office Procedures Post Void Residual Post Residual Void Post Void Residual (PVR): 30 [id number] Void Residual by ultrasound Results AMB Urinalysis, Automated UA Leukoctes 0 Ember/uL Last Edit by Mark Ortiz on 03/03/24 15:35 UA Nitrite Last Edit by Mark Ortiz on 03/03/24 15:35 UA Urobilinogen 0.2 mg/dL Last Edit by Mark Ortiz on 03/03/24 15:35 UA Protein 0 mg/dL Last Edit by Mark Ortiz on 03/03/24 15:35 UA pH 6.0 Last Edit by Mark Ortiz on 03/03/24 15:35 UA Blood 0 Vinnie/uL Last Edit by Mark Ortiz on 03/03/24 15:35 UA Specific [place] 1.030 Last Edit by Mark Ortiz on 03/03/24 15:35 UA Ketone Last Edit by Mark Ortiz on 03/03/24 15:35 UA Bilirubin 0 mg/dL Last Edit by Mark Ortiz on 03/03/24 15:35 UA Glucose 0 mg/dL Last Edit by Mark Ortiz on 03/03/24 15:35 Results Reviewed Results Reviewed: Laboratory Last Values Urine pH (Auto) 6.0 03/03/24 15:34 Specific [place] (Auto) 1.030 03/03/24 15:34 Urine Protein (Auto) 0 mg/dL 03/03/24 15:34 Glucose (UA)(Auto) 0 mg/dL 03/03/24 15:34 Urine Blood (Auto) 0 Vinnie/uL 03/03/24 15:34 Urine Bilirubin (Auto) 0 mg/dL 03/03/24 15:34 Urine Urobilinogen (Auto) 0.2 mg/dL 03/03/24 15:34 Leukocyte Esterase (Auto) 0 Ember/uL 03/03/24 15:34 Assessment & Plan Assessment & Plan (1) Bladder trabeculation: Code(s): N32.89 - Other specified disorders of bladder Category: Medical (2) Bladder wall thickening: Code(s): N32.89 - Other specified disorders of bladder Category: Medical (3) Renal cyst: Code(s): N28.1 - Cyst of kidney, acquired Category: Medical (4) Elevated PSA: Code(s): R97.20 - Elevated prostate specific antigen [PSA] Category: Medical (5) Nocturia: Code(s): R35.1 - Nocturia Category: Medical Plan In office urinalysis results reviewed with the patient today; as noted above. PVR 30 mL. Patient currently denies any bothersome urinary issues or concerns. He reports be happy with current voiding parameters. Continue finasteride and terazosin as prescribed; refill provided. Recent PSA results reviewed with the patient today; as noted above. Follow-up in 6 months with PVR; or sooner with any issues, concerns, and or questions. Orders: Orders AMB Post Void Residual by ultrasound Today R35.1 - Nocturia AMB Urinalysis Automated Today Z13.9 - Encounter for screening, unspecified Medications: Refilled terazosin 4 mg (2 x 2 mg) PO BEDTIME 180 caps 3RF 90 days finasteride 5 mg PO DAILY 90 tabs 1RF 90 days N13.8 - Other obstructive and reflux uropathy, N40.1 - Benign prostatic hyperplasia with lower urinary tract symptoms, R33.9 - Retention of urine, unspecified Patient Instructions: The patient had an opportunity to ask questions regarding the treatment plan. All questions were answered. Physical exam, labs, and imaging were discussed and reviewed in detail. As well as risks, benefits, and discussion of treatment choices. No major barriers to understanding were identified. The patient expressed understanding and agreement with the above treatment plan. The patient was made aware they should contact our office by phone for worsening of their current condition, the appearance of new symptoms, or with any questions or concerns. Compliance is encouraged with any medications and follow up testing that is ordered. It is a privilege to be allowed the opportunity to participate in? your urological care.? Again, if you have any questions or concerns If you have any questions or concerns please do not hesitate to contact me. The office is [phone]. This note is constructed using voice recognition software. While every effort has been made to ensure accuracy bias cutter errors may have been included. Yours sincerely, RADHA Stein Coding Level of Care Code Est Pt Level 3 (04864) Diagnoses Bladder trabeculation N32.89 Bladder wall thickening N32.89 Renal cyst N28.1 Elevated PSA R97.20 Nocturia R35.1 CPT Codes Post Residual Void - PVR CPT Code: 17566-Ebyq Void Residual by ultrasound ([id number])
== END 2024-03-03 15:45 | disposition home or self-care (01) ==
PROVIDERS: PCP Nurse Practitioner; Visit Provider Nurse Practitioner Family
DX: N32.89 Other specified disorders of bladder (principal); N28.1 Cyst of kidney, acquired; R97.20 Elevated prostate specific antigen [PSA]; R35.1 Nocturia; Z13.9 Encounter for screening, unspecified
CPT/HCPCS: 99213

== ENCOUNTER → 2024-03-03 15:03 | Outpatient (BNVA) | payer MEDICARE, MEDICAID, SELFPAY | PROVIDERS: PCP Nurse Practitioner; Visit Provider Nurse Practitioner Family | DX: R97.20 Elevated prostate specific antigen [PSA] (principal); R35.1 Nocturia; N32.89 Other specified disorders of bladder; N28.1 Cyst of kidney, acquired | CPT/HCPCS: 51798; 81003; 99212 ==

== ENCOUNTER 2024-09-01 15:16 | Outpatient (AMB) | payer MEDICARE, MEDICAID, SELFPAY ==
--- NOTE | 2024-09-01 15:28 | A.OFFVIS_ITS ---
Intake Visit Reasons: 6m/PVR Intake Note: Patient presents today for follow up visit on: renal cyst, nocturia, bladder wall thickening, and elevated psa Urology Medications: terazosin and finasteride Blood Thinner: aspirin PVR: 162ml's Entry Table Operator Required: No Accompanied by: Self / Same As Patient Allergies benzonatate [From Alisha Rogelanderson] Allergy (Verified 09/01/24 20:04) Rash augmenton Allergy (Unknown, Uncoded 09/01/24 20:04) Rash Medication List - Last Reconciled 09/01/24 by VISHAL Stein- aspirin (Gertrude Low Dose Aspirin) 81 mg PO DAILY atorvastatin 40 mg PO DAILY diltiazem HCl 120 mg PO DAILY finasteride 5 mg PO DAILY 90 days metoprolol succinate ER 100 mg PO DAILY terazosin 4 mg (2 x 2 mg) PO BEDTIME 90 days HPI Comments Details: Casey is a pleasant 69-year-old male patient of [facility]. He has a past medical history of AFib, diastolic dysfunction, ED, and BPH. He presents to the office today for follow-up of his ongoing lower urinary tract symptoms, elevated PSA, an enlarged prostate. In discussion with the patient today reports to be doing and feeling well. He reports noting improvement in episodes of nocturia he had been experiencing. He reports compliance with finasteride and terazosin as prescribed. Previous workup has included a retroperitoneal ultrasound 05/07 noting right kidney with no calculi. Exophytic 0.4 cm upper pole cyst is difficult to characterize due to small size. Prominent renal pyramids. Left kidney with no hydronephrosis and or renal calculi. The bladder wall is thickened measuring 0.6 cm. Diffuse trabeculations of the bladder wall. The bladder is well distended. Pre void bladder volume is approximately 270 mL. Postvoid bladder volume is approximately 100 mL. Prostate volume is approximately 33 mL. PSAs are as follows: PSAs: 06/07 4.5, 06/07 4.7 free PSA 19%, 10/05 2.4, 03/07 1.6 When asked he denies urgency, urinary frequency, incontinence, hematuria, dysuria, foul smelling urine, changes to urinary stream, flank pain, fever, and or chills. In office urinalysis results reviewed with the patient today. PVR 162 mLs. He discusses since his last office visit here he has since stopped wo rking. Also reports to be following up with his dentist and has recently had a tooth pulled and will be undergoing a filling to a cavity within the next couple of days. He otherwise offers no other issues or concerns at this time. [facility] Medical History Encounter for screening Atrial fibrillation Diastolic dysfunction Erectile dysfunction BPH (benign prostatic hyperplasia) Surgical History History of mitral valve repair Review of Systems Const Reports as per HPI Eyes Reports no additional complaints ENT Reports no additional complaints Card Reports as per HPI Resp Reports no additional complaints GI Reports no additional complaints Reports as per HPI Musc Reports no additional complaints Neuro Reports no additional complaints Psych Reports no additional complaints Endo Reports no additional complaints Jimmie/Lymph Reports no additional complaints Aller/Immun Reports no additional complaints Physical Exam Const General: cooperative, healthy appearing, comfortable, no acute distress, well developed, alert and awake Orientation/consciousness: patient oriented x3 Limitations: no limitations HEENT Head: Yes normal to inspection, Yes normocephalic and Yes atraumatic Ears: hearing grossly normal bilaterally Eyes General: appearance normal, both eyes and all related structures Neck Neck: Yes normal visual inspection and Yes trachea midline Chest Chest palpation & inspection: normal inspection of the chest Resp Effort & Inspection: normal respiratory effort and able to speak in complete sentences Cardio Rate: regular rate GI Inspection: Yes normal to inspection General: Yes no CVA tenderness Back/Spine/Pelvis Back: no CVA tenderness Skin General skin exam: no rashes or lesions noted Neuro General: patient oriented x3 Extrem General: Yes normal to inspection Psych Appearance: grossly normal and well kempt Mental Status: mental status grossly normal Speech and movement: Normal speech and movement present and Clear speech present Affect: normal affect Attitude: cooperative Thought process: Normal thought process present Thought content: Normal thought content present Insight: Fair insight present (Psych) Judgement: Fair judgement present (Psych) Office Procedures Post Void Residual Post Residual Void Post Void Residual (PVR): 162 [id number] Void Residual by ultrasound Results AMB Urinalysis, Automated UA Leukoctes 70 Ember/uL Last Edit by Mark Ortiz on 09/01/24 16:26 UA Nitrite Last Edit by Mark Ortiz on 09/01/24 16:26 UA Urobilinogen 0.2 mg/dL Last Edit by Mark Ortiz on 09/01/24 16:26 UA Protein 0 mg/dL Last Edit by [employer] on 09/01/24 16:26 UA pH 6.0 Last Edit by [employer] on 09/01/24 16:26 UA Blood 0 Vinnie/uL Last Edit by [employer] on 09/01/24 16:26 UA Specific [place] 1.005 Last Edit by [employer] on 09/01/24 16:26 UA Ketone Last Edit by [employer] on 09/01/24 16:26 UA Bilirubin 0 mg/dL Last Edit by [employer] on 09/01/24 16:26 UA Glucose 0 mg/dL Last Edit by [email or web address] on 09/01/24 16:26 Results Reviewed Results Reviewed: Laboratory Last Values Urine pH (Auto) 6.0 09/01/24 16:19 Specific [place] (Auto) 1.005 09/01/24 16:19 Urine Protein (Auto) 0 mg/dL 09/01/24 16:19 Glucose (UA)(Auto) 0 mg/dL 09/01/24 16:19 Urine Blood (Auto) 0 Vinnie/uL 09/01/24 16:19 Urine Bilirubin (Auto) 0 mg/dL 09/01/24 16:19 Urine Urobilinogen (Auto) 0.2 mg/dL 09/01/24 16:19 Leukocyte Esterase (Auto) 70 Ember/uL 09/01/24 16:19 Assessment & Plan Assessment & Plan (1) Bladder trabeculation: Code(s): N32.89 - Other specified disorders of bladder Category: Medical (2) Bladder wall thickening: Code(s): N32.89 - Other specified disorders of bladder Category: Medical (3) Elevated PSA: Code(s): R97.20 - Elevated prostate specific antigen [PSA] Category: Medical (4) Nocturia: Code(s): R35.1 - Nocturia Category: Medical Plan In office urinalysis results reviewed with the patient today; as noted above. PVR 162ml's He reports be happy with current voiding parameters. He currently denies any bothersome urinary issues or concerns. Will continue finasteride and terazosin as prescribed. Will continue with surveillance monitoring. We discussed attempting to double void to assist with bladder emptying as well as sitting when voiding. Will obtain PSA in 6 months. Follow-up in 6 months with PSA and PVR; or sooner with any issues, concerns, and or questions Orders: Orders AMB Urinalysis Automated Today Z13.9 - Encounter for screening, unspecified Prostate Specific Antigen 6 Months R35.1 - Nocturia, R97.20 - Elevated prostate specific antigen [PSA] AMB Post Void Residual by ultrasound Today R35.1 - Nocturia Patient Instructions: The patient had an opportunity to ask questions regarding the treatment plan. All questions were answered. Physical exam, labs, and imaging were discussed and reviewed in detail. As well as risks, benefits, and discussion of treatment choices. No major barriers to understanding were identified. The patient expressed understanding and agreement with the above treatment plan. The patient was made aware they should contact our office by phone for worsening of their current condition, the appearance of new symptoms, or with any questio ns or concerns. Compliance is encouraged with any medications and follow up testing that is ordered. It is a privilege to be allowed the opportunity to participate in? your urological care.? Again, if you have any questions or concerns If you have any questions or concerns please do not hesitate to contact me. The office is [phone]. This note is constructed using voice recognition software. While every effort has been made to ensure accuracy polisher implant errors may have been included. Yours sincerely, RADHA Stein Coding Level of Care Code Est Pt Level 3 (99445) Complex EM visit Add On G2211 Diagnoses Bladder trabeculation N32.89 Bladder wall thickening N32.89 Elevated PSA R97.20 Nocturia R35.1 CPT Codes Post Residual Void - PVR CPT Code: 62725-Rjij Void Residual by ultrasound ([id number])
== END 2024-09-01 15:59 | disposition home or self-care (01) ==
LOC: HO.HUSH 15:16
PROVIDERS: PCP Nurse Practitioner; Visit Provider Nurse Practitioner Family
DX: N32.89 Other specified disorders of bladder (principal); R97.20 Elevated prostate specific antigen [PSA]; R35.1 Nocturia; Z13.9 Encounter for screening, unspecified
CPT/HCPCS: 99213; G2211

== ENCOUNTER → 2024-09-01 15:16 | Outpatient (BNVA) | payer MEDICARE, MEDICAID, SELFPAY | PROVIDERS: PCP Nurse Practitioner; Visit Provider Nurse Practitioner Family | DX: N32.89 Other specified disorders of bladder (principal); R97.20 Elevated prostate specific antigen [PSA]; R35.1 Nocturia | CPT/HCPCS: 51798; 81003; 99212 ==

== ENCOUNTER 2025-02-15 11:11 | Outpatient (REF) | payer MEDICARE, MEDICAID, SELFPAY ==
[2025-02-15 15:22] LABS: Prostate Specific Antigen 1.24 ng/mL (<0.05-4.0)
== END 2025-02-15 11:12 | disposition home or self-care (01) ==
LOC: HO.LAB 11:11
PROVIDERS: Visit Provider Nurse Practitioner Family
DX: R97.20 Elevated prostate specific antigen [PSA] (principal); R35.1 Nocturia; Z12.5 Encounter for screening for malignant neoplasm of prostate
CPT/HCPCS: 36415; 84153

== ENCOUNTER 2025-03-01 14:23 | Outpatient (AMB) | payer MEDICARE, MEDICAID, SELFPAY ==
--- NOTE | 2025-03-01 14:33 | A.OFFVIS_ITS ---
Intake Visit Reasons: 6m/ PSA Intake Note: Patient presents today for 6m follow up with PSA * 02/15 PSA:1.24 Urology Medications: terazosin, finasteride Blood Thinner: aspirin Antibiotic Allergy:None PVR: 24ml Manufacturing Quality Manager Required: No Accompanied by: Self / Same As Patient Allergies benzonatate (From Alisha Pepe) Allergy (Verified 03/01/25 14:43) Rash augmenton Allergy (Unknown, Uncoded 03/01/25 14:43) Rash Medication List - Last Reconciled 03/01/25 by VISHAL Stein- aspirin (Gertrude Low Dose Aspirin) 81 mg PO DAILY atorvastatin 40 mg PO DAILY diltiazem HCl 120 mg PO DAILY finasteride 5 mg PO DAILY 90 days metoprolol succinate ER 100 mg PO DAILY terazosin 4 mg (2 x 2 mg) PO BEDTIME 90 days HPI Comments Details: Casey is a pleasant 69-year-old male patient of [facility]. He has a past medical history of AFib, diastolic dysfunction, ED, and BPH. He presents to the office today for follow-up of his ongoing lower urinary tract symptoms, elevated PSA, an enlarged prostate. In discussion with the patient today reports to be doing and feeling well. 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 He does feel he has had increased episodes of nocturia. He does report compliance with finasteride and terazosin as prescribed. In office urinalysis results reviewed with the patient today. PVR 24 mL. We did discuss significant decrease in postvoid residual since last office visit as previous PVR was noted to be 162 mL. We did discussed potential causes of increased episodes of nocturia. When asked he is unsure if he has signs or symptoms of sleep apnea we did discussed further workup however he would like to further undergo cardiology workup prior. Previous workup has included a retroperitoneal ultrasound 05/07 noting right kidney with no calculi. Exophytic 0.4 cm upper pole cyst is difficult to characterize due to small size. Prominent renal pyramids. Left kidney with no hydronephrosis and or renal calculi. The bladder wall is thickened measuring 0.6 cm. Diffuse trabeculations of the bladder wall. The bladder is well distended. Pre void bladder volume is approximately 270 mL. Postvoid bladder volume is approximately 100 mL. Prostate volume is approximately 33 mL. PSAs are as follows: PSAs: 06/07 4.5, 06/07 4.7 free PSA 19%, 10/05 2.4, 03/07 1.6, 03/08 1.2 When asked he denies urgency, urinary frequency, incontinence, hematuria, dysuria, foul smelling urine, changes to urinary stream, flank pain, fever, and or chills. All questions were answered. He otherwise offers no other issues or concerns at this time. [facility] Medical History Encounter for screening Atrial fibrillation Diastolic dysfunction Erectile dysfunction BPH (benign prostatic hyperplasia) Surgical History History of mitral valve repair Review of Systems Const Reports as per HPI Eyes Reports no additional complaints ENT Reports no additional complaints Card Reports as per HPI Resp Reports no additional complaints GI Reports no additional complaints Reports as per HPI Musc Reports no additional complaints Neuro Reports no additional complaints Psych Reports no additional complaints Endo Reports no additional complaints Jimmie/Lymph Reports no additional complaints Aller/Immun Reports no additional complaints Physical Exam Const General: cooperative, healthy appearing, comfortable, no acute distress, well developed, alert and awake Orientation/consciousness: patient oriented x3 Limitations: no limitations HEENT Head: Yes normal to inspection, Yes normocephalic and Yes atraumatic Ears: hearing grossly normal bilaterally Eyes General: appearance normal, both eyes and all related structures Neck Neck: Yes normal visual inspection and Yes trachea midline Chest Chest palpation & inspection: normal inspection of the chest Resp Effort & Inspection: normal respiratory effort and able to speak in complete sentences Cardio Rate: regular rate GI Inspection: Yes normal to inspection General: Yes no CVA tenderness Back/Spine/Pelvis Back: no CVA tenderness Skin General skin exam: no rashes or lesions noted Neuro General: patient oriented x3 Extrem General: Yes normal to inspection Psych Appearance: grossly normal and well kempt Mental Status: mental status grossly normal Speech and movement: Normal speech and movement present and Clear speech present Affect: normal affect Attitude: cooperative Thought process: Normal thought process present Thought content: Normal thought content present Insight: Fair insight present (Psych) Judgement: Fair judgement present (Psych) Assessment & Plan Assessment & Plan (1) Renal cyst: Code(s): N28.1 - Cyst of kidney, acquired Category: Medical (2) Nocturia: Code(s): R35.1 - Nocturia Category: Medical (3) Elevated PSA: Code(s): R97.20 - Elevated prostate specific antigen [PSA] Category: Medical Plan In office urinalysis results reviewed with the patient today; as noted above. PVR 24 mL. Continue finasteride and terazosin as prescribed. We did discussed obtaining sleep study for further assessment evaluation however will reassess in 3 months We did discuss importance of limiting fluids 2-3 hours prior to bed to decrease episodes of nocturia. Most recent PSA results reviewed with the patient today; as noted above. We also discussed potential near future in office cystoscopy and or urodynamics for further assessment evaluation. Follow-up in 3 months with PVR; or sooner with any issues, concerns, and or questions. Patient Instructions: The patient had an opportunity to ask questions regarding the treatment plan. All questions were answered. Physical exam, labs, and imaging were discussed and reviewed in detail. As well as risks, benefits, and discussion of treatment choices. No major barriers to understanding were identified. The patient expressed understanding and agreement with the above treatment plan. The patient was made aware they should contact our office by phone for worsening of their current condition, the appearance of new symptoms, or with any questions or concerns. Compliance is encouraged with any medications and follow up testing that is ordered. It is a privilege to be allowed the opportunity to participate in? your urological care.? Again, if you have any questions or concerns If you have any questions or concerns please do not hesitate to contact me. The office is [phone]. This note is constructed using voice recognition software. While every effort has been made to ensure accuracy visitor use assistant errors may have been included. Yours sincerely, RADHA Stein Coding Level of Care Code Est Pt Level 3 (76388) Complex EM visit Add On G2211 Diagnoses Renal cyst N28.1 Nocturia R35.1 Elevated PSA R97.20
== END 2025-03-01 15:09 | disposition home or self-care (01) ==
LOC: HO.HUSH 14:24
PROVIDERS: Visit Provider Nurse Practitioner Family
DX: N28.1 Cyst of kidney, acquired (principal); R35.1 Nocturia; R97.20 Elevated prostate specific antigen [PSA]; N32.89 Other specified disorders of bladder
CPT/HCPCS: 99213; G2211

== ENCOUNTER → 2025-03-01 14:23 | Outpatient (BNVA) | payer MEDICARE, MEDICAID, SELFPAY | PROVIDERS: Visit Provider Nurse Practitioner Family | DX: R97.20 Elevated prostate specific antigen [PSA] (principal); R35.1 Nocturia; N28.1 Cyst of kidney, acquired; Z79.82 Long term (current) use of aspirin | CPT/HCPCS: 51798; 81003; 99212 ==